=== PATIENT | female | born 1950 | race Caucasian/White ===

== ENCOUNTER → 2016-04-12 | Day surgery (SDC) | payer BC ==
[~2016-04-12] MED LIST: BUPIVACAINE/EPINEPHRINE 0.5% PF 30 ML VIAL ONE; KETOROLAC TROMETHAMINE 30 MG/ML (IVP) VIAL IV PUSH ONE; LACTATED RINGER'S 1000 ML INJ 1,000 ML ONE; MIDAZOLAM HCL 2 MG/2 ML VIAL ONE; ONDANSETRON HCL 4 MG/2 ML VIAL IV PUSH ONE; PROPOFOL 200 MG/20 ML AMP IV ONE; ceFAZolin 2 GM PREMIX 50 ML ONE
--- NOTE | 2016-04-13 09:23 | MP ---
cc: SYLVIA ZAVALA M.D. DATE OF SURGERY 04/12/2016 PREOPERATIVE DIAGNOSIS Left knee medial meniscus tear. POSTOPERATIVE DIAGNOSIS Left knee medial meniscus tear, chondromalacia medial femoral condyle and lateral meniscus tear. PROCEDURE Left knee arthroscopic partial medial and partial lateral meniscectomy including chondroplasty medial femoral condyle. ANESTHESIA General SURGEON Sylvia Zavala MD ESTIMATED BLOOD LOSS Minimal DRAINS None SPECIMEN None COMPLICATIONS None MEDICATIONS Nancy Adhikari is a 65-year-old female with persistent left knee pain and disability. She has MRI scan which shows significant findings for meniscal pathology. She now presents for arthroscopic surgery. The risks and benefits thoroughly discussed and a detailed informed consent was obtained. PROCEDURE The patient brought into the operating room. The left lower extremity was draped and prepped in the usual sterile fashion. IV antibiotics given. Time-out completed. A tourniquet was in place, but not used. An inferior lateral portal made with Marcaine after this time-out was completed. Blunt trocar used to introduce the cannula. The patellofemoral joint appeared normal, photographed. The ACL appeared normal. Lateral compartment showed a tear involving the inner 20% to 30% of the posterior horn and mid body an involving the anterior horn. We proceeded with making our medial portal and bring a shaver in and performing a partial lateral meniscectomy, smoothing and contouring and taking follow up photograph here. We then visualized the medial compartment which showed an unstable tear at the junction of the body and posterior horn of the medial meniscus. There was no major a root tear as was suspected based on the MRI. There was chondromalacia on the medial femoral condyle and we proceeded with gentle chondroplasty for this and partial medial meniscectomy using a combination of basket forceps and arthroscopic shaver. We switched over a switching stick to smooth and contour from this angle and addressed the lateral compartment posterior horn, as well and follow-up photographs showed the final results. Repeat diagnostic arthroscopy through the lateral portal reveals no loose bodies. Arthroscopic equipment was removed. Marcaine injected about the portals. Steri-Strips applied. Sterile dressing applied. Angel wrap applied. The patient was awoken and returned to the recovery room in stable condition. MD ROSEMARY Lara/MANUEL /1:33 PM /9:20 AM
== END | disposition home or self-care (01) ==
LOC: ESDC 09:39
PROVIDERS: ATTEND Orthopaedic Surgery Sports Medicine
DX: S83.242A Other tear of medial meniscus, current injury, left knee, initial encounter (principal); S83.282A Other tear of lateral meniscus, current injury, left knee, initial encounter; M94.262 Chondromalacia, left knee
CPT/HCPCS: 01400; 29880; J0690; J1885; J2250; J2405; J3010; J7120